=== PATIENT | male | born 1955 | race Caucasian/White ===

== ENCOUNTER → 2020-05-27 | Outpatient (CLI) | payer MEDICARE ==
[~2020-05-27] MED LIST: ASPI81TA45 PO; ATOR-2 PO; CARV25TA12 PO; CHOL10003 PO; FURO-92 PO; ISOS30TA8 PO; LISI40TA PO; POTA10TA5 PO
== END | disposition home or self-care (01) ==
LOC: STAR 08:57
PROVIDERS: ATTEND Anesthesiology
DX: Z01.812 Encounter for preprocedural laboratory examination (principal); Z20.828 Contact with and (suspected) exposure to other viral communicable diseases
CPT/HCPCS: 36415; 87635